=== PATIENT | female | born 1970 | race Caucasian/White ===

== ENCOUNTER 2020-10-27 10:15 | Outpatient (RCR) | payer OTHER, SELFPAY ==
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
[2020-10-10 13:23] VITALS: BMI 50.9
--- NOTE | 2020-10-10 13:45 | PC.ADMIT ---
Patient self referred back to the [facility] as she reports the program has been helpful in the past. Reports increased in depression with passive SI, denied plan or intent, increased anxiety and PTSD sxs. Reports increased stressed at work d/t d/t Covid. 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 She is currently taking a [employer] to work on her mental health. Patient also reports that she has not been taking care of her diabetes as she has not taken her blood sugars by glucometer in two months as she stated she does not feel like taking care of herself. Educated patient about new technology including new implant sensor monitors. Patient stated that her doctor spoke to her about needing to take her blood sugars QID for 2 weeks in order to be eligible per her insurance. Educated patient about ways she could accomplish this as she is interested in the new monitors. Patient is alert and oriented x4. Presents with depressed mood and anxious affect. Reports passive SI, no plan or intent. Patient gave verbal permission to email her a copy of her safety plan. If feeling unsafe patient reports she could call crisis.
--- NOTE | 2020-10-12 14:37 | PC.NURSE ---
Case opened in treatment team
--- NOTE | 2020-10-18 13:45 | P.PNPSP_ITS ---
Subjective Subjective Date of Service: 10/18/20 Reason For Visit: MDD, QIANA Interim History: The patient reported that she is doing better, she requested to change Wellbutrin SR 200 only once a day. No safety issues Medication Compliance: Yes Side effects from medications: No Attending Groups: Yes Mental Status Exam Mental Status Exam Patient Appearance: Well Grooomed Patient Orientation: Person, Place, Time and Situation Level of Consciousness: Awake Patient Behavior: Appropriate Mood Description: Appropriate Affect Description: Constricted Patient Cognition Impaired: No Ability to Follow Directions: Good Speech Pattern: Clear Memory Description: Intact Hallucinations: None Delusions: Not Present Thought Process: Goal Oriented Thought Content: positive for Intact Judgement: Fair Diagnostics Vital Signs (24Hr): Body Mass Index 50.9 Assessment & Plan Assessment & Plan (1) Major depressive disorder: Status: Acute Code(s): F32.9 - Major depressive disorder, single episode, unspecified Assessment and Plan: The patient is a50 year old female with MDD with several medication trials,, treated for years, currently referred to [facility] after exacerbation of dysphoria and recent medication changes. Today, she reported that she felt weird with the 2nd dose of Wellbutrin and asked to change it. Plan: Keep Seroquel SR 200 mg only once a day. F/U as protocol Certification I certify that partial hospital treatment is medically necessary due to the symptoms and problems resulting from the patient's mental illness and the failure to treat the patient at the partial hospital level of care would likely result in the patient requiring inpatient psychiatric care which could not be prevented at a less intensive level of care. Greater than 50% of the session was spent on counseling and/or coordination of care Discharge Plan Discharge Attending provider: Vernon Huang Primary Care Provider: Maddie Elias Medications: New bupropion HCl [Wellbutrin SR] 200 mg tablet sustained-release 12 hr 200 mg PO QAM 14 Days Qty: 14 RF: 0 Discontinued bupropion HCl 150 mg Tablet Sustained-Release 12 Hr 150 mg PO DAILY RF: 0 bupropion HCl 100 mg Tablet Sustained-Release 12 Hr 100 mg PO DAILY RF: 0 No Action lamotrigine 150 mg Tablet 150 mg PO BID RF: 0 Lantus U-100 Insulin 100 unit/mL solution 52 unit subcut BID RF: 0 montelukast [Singulair] 10 mg Tablet 10 mg PO DAILY RF: 0 albuterol sulfate [ProAir HFA] 90 mcg/actuation Hfa Aerosol Inhaler 2 puff INHALATION Q4-6H PRN (Reason: Shortness Of Breath) RF: 0 fluticasone propionate 50 mcg/actuation [place],Suspension 2 spray INTRANASAL DAILY RF: 0 glipizide 5 mg Tablet 10 mg PO BID RF: 0 Flovent HFA 110 mcg/actuation Hfa Aerosol Inhaler 2 puff INHALATION BID RF: 0 rosuvastatin 40 mg Tablet 40 mg PO DAILY RF: 0 cholecalciferol (vitamin D3) [Vitamin D3] 50 mcg (2,000 unit) Capsule 50 mcg PO DAILY RF: 0 Lumigan 0.01 % Drops 1 drp ophthalmic-Right BEDTIME RF: 0 Trintellix 20 mg Tablet 20 mg PO DAILY RF: 0 Referrals: Maddie Elias NP [Primary Care Provider] - 1 Week Telehealth Telehealth Location of provider rendering services: practice address Location of patient: address on file Patient Identification confirmed using: Name, : No Telehealth method: video Patient verbally consented to treatment: Yes Patient verbally consented to billing insurance company: Yes Patient informed of any privacy concerns related to visit: No Time spent with patient (mins): 15
--- NOTE | 2020-10-23 14:21 | PC.NURSE ---
F/U with patient regarding taking her POC blood sugars to be taking QID x 2 weeks in order to be eligible for POC glucometer implant. Patient reports that she has taken her blood sugars QID x 2 weeks and is proud of herself for doing so. Patient stated she sees a direct correlation now to eating carbohydrates and high blood sugars which has been motivating her to eat healthier. Encouraged patient to call her PCP now to set up an appointment. Patient plans on calling today.
--- NOTE | 2020-10-25 08:10 | PC.NURSE ---
Patient is planning on making a routine gynecology appointment as she is feeling more motivated to take care of herself.
--- NOTE | 2020-10-26 14:11 | HO.PHPPROGNO ---
Subjective Subjective Date of Service: 10/26/20 Reason For Visit: MDD, QIANA Interim History: The patient reported that she is doing well with Wellbutrin SR 200 mg po daily. She is finishing the program and she feels satisfied with it. Medication Compliance: Yes Side effects from medications: No Attending Groups: Yes Review of Systems Acute medical concerns: No Medical Review of Systems: unchanged Mental Status Exam Mental Status Exam Patient Appearance: Well Grooomed Patient Orientation: Person, Place, Time and Situation Level of Consciousness: Awake Patient Behavior: Appropriate Mood Description: Calm Affect Description: Appropriate Patient Cognition Impaired: No Ability to Follow Directions: Good Speech Pattern: Clear Memory Description: Intact Hallucinations: None Thought Process: Goal Oriented Thought Content: positive for Circumstantial Judgement: Fair Diagnostics Vital Signs (24Hr): Body Mass Index 50.9 Assessment & Plan Assessment & Plan (1) Major depressive disorder: Status: Acute Code(s): F32.9 - Major depressive disorder, single episode, unspecified Assessment and Plan: Adult female with MDD that responded fairly well to Wellbutrin, ready for discharge. Plan: Discharge from [facility]. Continue Wellbutrin SR 200 mg po qam Certification I certify that partial hospital treatment is medically necessary due to the symptoms and problems resulting from the patient's mental illness and the failure to treat the patient at the partial hospital level of care would likely result in the patient requiring inpatient psychiatric care which could not be prevented at a less intensive level of care. Greater than 50% of the session was spent on counseling and/or coordination of care Discharge Plan Discharge Attending provider: Vernon Huang Primary Care Provider: Maddie Elias Medications: New bupropion HCl [Wellbutrin SR] 200 mg tablet sustained-release 12 hr 200 mg PO QAM 14 Days Qty: 14 RF: 0 Discontinued bupropion HCl 150 mg Tablet Sustained-Release 12 Hr 150 mg PO DAILY RF: 0 bupropion HCl 100 mg Tablet Sustained-Release 12 Hr 100 mg PO DAILY RF: 0 No Action lamotrigine 150 mg Tablet 150 mg PO BID RF: 0 Lantus U-100 Insulin 100 unit/mL solution 52 unit subcut BID RF: 0 montelukast [Singulair] 10 mg Tablet 10 mg PO DAILY RF: 0 albuterol sulfate [ProAir HFA] 90 mcg/actuation Hfa Aerosol Inhaler 2 puff INHALATION Q4-6H PRN (Reason: Shortness Of Breath) RF: 0 fluticasone propionate 50 mcg/actuation [place],Suspension 2 spray INTRANASAL DAILY RF: 0 glipizide 5 mg Tablet 10 mg PO BID RF: 0 Flovent HFA 110 mcg/actuation Hfa Aerosol Inhaler 2 puff INHALATION BID RF: 0 rosuvastatin 40 mg Tablet 40 mg PO DAILY RF: 0 cholecalciferol (vitamin D3) [Vitamin D3] 50 mcg (2,000 unit) Capsule 50 mcg PO DAILY RF: 0 Lumigan 0.01 % Drops 1 drp ophthalmic-Right BEDTIME RF: 0 Trintellix 20 mg Tablet 20 mg PO DAILY RF: 0 Referrals: Maddie Elias NP [Primary Care Provider] - 1 Week Telehealth Telehealth Location of provider rendering services: practice address Location of patient: address on file Patient Identification confirmed using: Name, : No Telehealth method: video Patient verbally consented to treatment: Yes Patient verbally consented to billing insurance company: Yes Patient informed of any privacy concerns related to visit: No Time spent with patient (mins): 15
--- NOTE | 2020-10-27 14:12 | PC.NURSE ---
Patient was discharged from the program today. Reviewed patient's medications with patient. Patient reports taking medications as prescribed. Medication education provided.
== END 2020-10-30 08:56 | disposition home or self-care (01) ==
LOC: HO.PHPA 10:15
PROVIDERS: PCP Nurse Practitioner; Visit Provider Psychiatry & Neurology Psychiatry
DX: F32.9 Major depressive disorder, single episode, unspecified (principal); Z79.899 Other long term (current) drug therapy
CPT/HCPCS: 90791; 90853